=== PATIENT | male | born 1965 | race Caucasian/White ===

== ENCOUNTER 2022-12-18 23:36 | Emergency (ER) | payer BC ==
[~2022-12-18] VITALS: Ht 188 cm; Wt 99.8 kg
[2022-12-18] MEDS ORDERED: TOPROL XL50 M1 PO (23:56)
[2022-12-18] MEDS ORDERED: ZESTRIL5 MG PO (23:56)
[2022-12-18] MEDS ORDERED: ADULT LOW DOSE81 M1 PO (23:57)
[2022-12-19] MEDS ORDERED: CIPRO500 MG PO (03:08)
[2022-12-19] MEDS ORDERED: KETO10TA2 PO (03:10)
[2022-12-19] MEDS ORDERED: TAMS0.4C PO (03:10)
== END 2022-12-19 03:13 | disposition home or self-care (01) ==
LOC: ER 23:36
DX: N20.1 Calculus of ureter (principal); N28.1 Cyst of kidney, acquired; K57.30 Diverticulosis of large intestine without perforation or abscess without bleeding; Z88.0 Allergy status to penicillin; M54.50 Low back pain, unspecified